=== PATIENT | female | born 1950 | race Caucasian/White ===

== ENCOUNTER 2017-11-19 07:52 | Inpatient (IN) | payer MEDICARE ==
[2017-11-19 07:51] LABS: ABO GROUP A; ANTIBODY SCREEN NEGATIVE (NEGATIVE); RH TYPE POSITIVE
[~2017-11-19 07:52] MED LIST: CEFAZOLIN 2 Gram 2 GM/50 ML BAG IVPB ONE; CELECOXIB 100 MG CAPSULE PO ONE; FAMOTIDINE 20MG TABLET PO ONE; MECLIZINE 25 MG TABLET PO ONE; METOCLOPRAMIDE 10 MG TABLET PO ONE; VANCOMYCIN HCL 1,000 MG in DEXTROSE 5 % IN WATER 250 ML IVPB ONE
[2017-11-19] MEDS ORDERED: HYDROMORPHONE HCL 2 MG/ML VIAL IM PRN (10:56)
[2017-11-19] MEDS ORDERED: MAGNESIUM HYDROXIDE 30 ML UDC PO PRN (10:56)
[2017-11-19] MEDS ORDERED: ACETAMINOPHEN 325 MG TAB PO PRN (10:56)
[2017-11-19] MEDS ORDERED: BISACODYL 10 MG SUPP RC PRN (10:56)
[2017-11-19] MEDS ORDERED: DIPHENHYDRAMINE HCL 25 MG CAPSULE PO PRN (10:56)
[2017-11-19] MEDS ORDERED: AL HYDROX/MAG HYDROX 30ML UD PO PRN (10:56)
[2017-11-19] MEDS ORDERED: NALOXONE 0.4 MG/1 ML VIAL IVP PRN (10:56)
[2017-11-19] MEDS ORDERED: KETOROLAC 30 MG/ML VIAL IVP PRN ×2 (10:56)
[2017-11-19] MEDS ORDERED: ONDANSETRON HCL IV 4 MG/2 ML VIAL IVP PRN (10:56)
[2017-11-19] MEDS ORDERED: ZOLPIDEM TARTRATE 5 MG TABLET PO PRN (10:56)
[2017-11-19] MEDS ORDERED: ACETAMINOPHEN W/ CODEINE 300MG/60MG TABLET PO PRN (10:56)
[2017-11-19] MEDS ORDERED: TRANEXAMIC ACID 1,000 MG/10 ML ML IV ONE ×2 (12:56→12:59)
[2017-11-19] MEDS ORDERED: 0.9 % SODIUM CHLORIDE 10 ML VIAL IVP ONE (12:59)
[2017-11-19] MEDS ORDERED: FENTANYL PF 100MCG/2ML VIAL IV ONE (14:00)
[2017-11-19] MEDS ORDERED: PROPOFOL 10 MG/ML VIAL IV ONE (14:00)
[2017-11-19] MEDS ORDERED: KETOROLAC 30 MG/ML VIAL IVP ONE (14:00)
[2017-11-19] MEDS ORDERED: HYDROMORPHONE HCL 2 MG/ML VIAL IV ONE (14:00)
[2017-11-19] MEDS ORDERED: DIPHENHYDRAMINE HCL IV 50 MG/ML VIAL IVP ONE (14:00)
[2017-11-19] MEDS ORDERED: *PACU ONLY* KETAMINE HCL 10 MG/ML (20ML) VIAL IV ONE (14:00)
[2017-11-19] MEDS ORDERED: MIDAZOLAM HCL 2MG/2ML VIAL IV ONE (14:00)
--- NOTE | 2017-11-19 14:40 | Rehab Evaluation ---
Patient Information - Patient Information Diagnosis: R Knee DJD Ordered Treatment: PT Evaluate and Treat Status: Initial Evaluation Surgery: Yes (R TKA) Date of Surgery: 11/19/17 Past Medical/Surgical Hx: PAST MEDICAL/SURGICAL HISTORY Past Surgical History 2 C SECTIONS; HYSTERECTOMY & ONE OVARY REMOVED(ENDOMETRIOSIS) ; LAP JUAN M; APPY WITH OVARY REMOVAL; 2 HERNIA REPAIR; EXPLORATORY LAP FOR ENDOMETRIOSIS; 1995 ABD SX-"I LEFT HOSPITAL WITH AN OPEN INCISION-PACKED"--INCISION "OPENED UP AFTER DR TOOK OUT LIT"; ABDOMINAL HERNIA SX (INCISIONAL); 2012 EXP LAPAROTOMY WITH REMOVAL OF MESH-MANY ADHESIONS. COLONOSCOPY. REMOVAL OF BLOOD CLOT FROM LEFT LEG -AGE 26 PMH - Respiratory Hx Respiratory Disorders Yes Hx Asthma No Hx Bronchitis Yes: YEARS AGO Hx Chronic Obstructive No Pulmonary Disease (COPD) Hx Dyspnea No Hx Pneumonia Yes: WALKING WHEN YOUNGER Hx Pulmonary Embolism No Hx Sleep Apnea No Hx Tuberculosis No Hx of CPAP No Hx of URI Yes: 2017 PMH - Cardiovascular Hx Cardiovascular Disorders Yes Hx Abnormal EKG No Hx Cardiac Catheterization No Hx Chest Pain No Hx Congestive Heart Failure No Hx Deep Vein Thrombosis Yes: 2X AGE 26 Hx Edema No Hx Heart Attack No Hx Hypertension Yes: ATENOLOL GOOD CONTROL Hx Hypotension No Hx Irregular Heartbeat No Hx Palpitations No Hx Pacemaker/Defibrillator No Hx Vascular Disease No Hx of Mitral Valve Prolapse Yes Exercise Tolerance Poor Hx Transient Ischemic Attacks No (TIA) Comment: DUE TO KNEE PAIN PMH - Neuro Hx Neurological Disorders Yes Hx Brain Tumor No Hx Cerebrovascular Accident No Hx Dementia No Hx Dizziness No Hx Headaches Yes: ALLERGY RELATED Hx Neuropathy No Hx Parkinson's Disease No Hx Seizures No Hx Speech Problem No Hx Syncope No Hx Transient Ischemic Attacks No (TIA) PMH - GI Hx Gastrointestinal Disorders Yes Hx Abdominal Pain No Hx Celiac Disease No Hx Crohn's Disease No Hx Diverticulitis Yes Hx Gastrointestinal Bleed No Hx Gastroesophageal Reflux Yes: OMEPRAZOLE RX Hx Hepatitis/Jaundice No Hx Hiatal Hernia No Hx Irritable Bowel Yes: ?? /PT HAS DIARRHEA Hx Liver Disease No Hx Nausea/Vomiting No Hx Obstructive Bowel No Hx Pancreatitis No Hx Rectal Bleeding No Hx Ulcer No Hx Weight Loss/Weight Gain No PMH - Hx Genitourinary Disorders Yes Hx Bladder Problem Yes: ON [facility]-[facility] FREQUENCY Hx Dialysis No Hx Kidney Stones Yes: 15 YRS AGO Hx Renal Disease No Hx Urinary Tract Infection No Comment: HYSTERECTOMY PMH - Endocrine Hx Endocrine Disorders Yes Hx Diabetes No Hx Thyroid Disease Yes PMH - Musculoskeletal Hx Musculoskeletal Disorders Yes Hx Arthritis Yes: KNEES, WRISTS Hx Back Injury No Hx Fibromyalgia No Hx Gout No Hx Musculoskeletal Disease No Hx Osteoporosis No PMH - Psych Hx Psychiatric Problems Yes Hx Anxiety Yes Hx Behavior Problems No Hx Depression No Hx Emotional Abuse No Hx Sexual Abuse No Hx Suicide Attempt No Major Depressive Episode No Feelings of Hopelessness No PMH - Hematology/Oncology Hx Hematology/Oncology Yes Disorders Hx Anemia No Hx Blood Disorders No Hx Bruising Yes: EASY TO BRUISE Hx Cancer No Hx Chemotherapy No Hx Radiation Therapy No Hx Clotting Problems No Hx Sickle Cell Disease No Hx Unexplained Bleeding No Hx Blood Transfusion Reaction No Social History: Detail (The patient lives in a one story home with her . The patient's home has 4 steps to enter with a railing on the right side while ascending. The bathroom has a walk-in shower with grab bars and a shower seat present. The toilet is a standard height, but will be using a riser once she returns home. The toilet does not have grab bars present. She will be using a 2WW during ambulation post-op.) Precautions: Other (WBAT on R) - Time With Patient Total Time Spent With Patient (Min): 30 Treatment Procedures: Detail (PT Initial Evaluation) Subjective Information - Subjective Information Per Patient (No complaints of nausea or dizziness at initial evalution. Had some complaints of itching - nursing was notified.) Objective Data - Pain Pain Present: No Pain Intensity: 0 Pain Scale Used: Numeric (1 - 10) - Mental Status Patient Orientation: Oriented x3 - ROM Within normal limits (Not formally tested, but was within functional limits. R Knee is limited as expected s/p R TKA) - Strength/Tone Within normal limits (Was within functional limits for activities at initial evaluation. R knee strength was decreased as expected s/p R TKA) - Bed Mobility Independent (Scooting - Independent. Supine to sit - Independent with use of grab bars. Sit to supine - Independently.) - Transfers Independent (Toilet Transfer - Independent. Stand to sit - Independent.) - Balance Balance Sitting: Good (No problems with LOB while sitting at the bedside.) Balance Standing: Good (Decreased WB on R side, but showed no LOB during static standing and gait activities.) - Gait Detail (The patient was able to ambulate using 2WW and WBAT on R from her room to Room 25 (about 40 feet total) with supervision. She had no LOB during gait, but did fatigue quickly.) Therapy Assessment - Therapy Assessment Detail (The patient has decreased ROM and strength in the R knee as expected s/ p R TKA. The patient was independent with transfers and bed mobility. She had some fatigue with gait activities, and stairs were not assessed at initial evaluation. The patient should progress well with Inpatient PT.) Patient Education - Patient Education Teaching Topic: Exercise/Activity (The patient was instructed in her HEP, which included: Quad Sets, glute. sets, Hamstring sets/Heel Slides, ankle pumps, and SLR. She was instructed to complete 10 reps of each exercise 1-2x/day or to tolerance.) Response: Return Demonstration, Verbalize Understanding Teaching Method: Discussion, Demonstration Teaching Recipient: Patient Barriers To Learning: None Problem List - Problem List Physical Therapy Problem List: Detail (1) Decreased ROM and strength as expected s/p R TKA 2) Ability to ascend/descend stars not assessed) Goals - Goals Physical Therapy Goals: 1) The patient will be independent in HEP in order to increase strength/ROM to aid with functional activities in the home. 2) The patient will be able to ascend/descend 4 steps with supervision to enter the home safely Prognosis - Prognosis Good Plan - Plan Physical Therapy Plan: The patient will be seen 1-2x/day M-F for gait training and LE strengthening/ROM exercises.
--- NOTE | 2017-11-19 14:50 | Operative Note ---
DATE OF SURGERY: 11/19/17 PREOPERATIVE DIAGNOSIS: END-STAGE ARTHROSIS OF THE RIGHT KNEE. POSTOPERATIVE DIAGNOSIS: END-STAGE ARTHROSIS OF THE RIGHT KNEE. PROCEDURE: CEMENTED RIGHT TOTAL KNEE ARTHROPLASTY USING URIOSTEGUI-NEPHEW SHERICE II COMPONENTS WITH A SIZE 4 OXINIUM FEMUR, A SIZE 3 STEM TIBIAL BASEPLATE, A 9 mm LIPPED HIGHLY CROSSLINKED TIBIAL INSERT, AND A 35 MM ALL-PLASTIC PATELLA. STAFF SURGEON: ELISA ZARATE M.D. ANESTHESIA: SPINAL. PREPARATION: CHLORAPREP. INDIVIDUAL CONSIDERATIONS: NONE. PROCEDURE: The patient was taken to the Operating Room and placed supine on the operating table. She had a successful induction of a spinal anesthetic. Her right lower extremity was prepped and draped in the usual fashion. Limb was elevated. The tourniquet was inflated to 250 mmHg. Sharp dissection was carried down through the skin and subcutaneous tissues. Small veins were coagulated with a Bovie. A medial arthrotomy was performed. Patella was everted and the knee was flexed. She had exposed bone especially in the patellofemoral and actually lateral compartments. The fat pad was resected, ACL was sacrificed , provisional anterior meniscectomies were performed, and the capsule was released from the medial proximal tibia. The initial femoral agricultural pilot hole was then made freehand. The intramedullary femoral cutting jig was placed. It was cut in 7.0 degrees of valgus and adjusted for rotation for a 10 mm resection. The initial transverse cut was then made. Skin guide was placed for the anterior and posterior agricultural pilot holes. It was found that a size 4 would be appropriate. The anterior and posterior cuts followed by chamfer cuts were made and osteophytes were removed, and a size 4 trial was placed and found to fit well. The tibia was brought forward and the remainder of the meniscal remnants were removed with a Bovie. The extra-articular tibial cutting jig was placed and it was cut in neutral with a 3-degree AP slope. Care was taken to adjust for rotation and flexion using the extra-articular alignment guide and bony landmarks. It was set for a 9 mm resection and keyed off the high medial side and secured with pins. When cutting the tibia, care was taken to preserve the PCL insertion on the tibia. Large medial osteophytes were removed and it was found that a size 3 baseplate would fit appropriately. It was adjusted for rotation and secured with pins. With a 9 mm trial and femoral trial, there was excellent motion and stability. The femoral agricultural pilot holes were impacted and the triflange tibial stamp was impacted, and these trial components were removed. The patient had a relatively thin patella but adjusted for bone less, I was able to preserve maybe 13 to 14 mm of bone and this cut freehand. I was able to fit a 35 patella and the three agricultural pilot holes were drilled. The tourniquet was let down briefly to get bleeders posteriorly and then placed back up again. The knee was then thoroughly irrigated out with pulsatile Betadine and saline to remove any visual or palpable debris. Bony surfaces were then dried. A size 3 stemmed tibial baseplate was cemented into place, followed by impaction of a 9 mm lipped tibial insert, followed by cementing in the size 4 Oxinium femur, followed by cementing in the 32 mm all-plastic patella. Implant surfaces were compressed, excess cement was removed, and after the cement had set, there was excellent motion and stability, ligamentous balance, rotation, alignment, and patellofemoral tracking were normal. No lateral release was required. After irrigation, the tourniquet was let down. Hemostasis was obtained with a Bovie. The capsule and periosteum were infiltrated with 30 mL of 0.50% Marcaine with Epinephrine and then closed the capsule with a running #2 quill, the subcutaneous was closed in layers with running 0 Quill, and the skin was closed with sadi. The patient did receive 1 gram of Tranexamic Acid preoperatively. I mixed 1 gram of Tranexamic Acid with 30 mL of saline and injected it into the knee through a sterile 18-gauge needle and a sterile Bulkee compressive Aquacel- type dressing was applied. The patient tolerated the procedures well. Needle and sponge counts were correct. Estimated blood loss was minimal and she was taken back to the Recovery Room in good condition. There were no complications. cc: Dr. Rajiv Uriostegui JOB NUMBER: [id number] MTDD
[2017-11-19] MEDS: ACETAMINOPHEN W/ CODEINE 300MG/60MG TABLET PO PRN ×2 (14:52→23:30)
[2017-11-19] MEDS: POTASSIUM CHLORIDE/D5-0.9%NACL 20 MEQ/1,000 ML BAG IV SCH ×2 (17:16→21:37)
[2017-11-19] MEDS: CEFAZOLIN 2 Gram 2 GM/50 ML BAG IVPB SCH (17:58)
[2017-11-19] MEDS: TRAMADOL HCL 50 MG TABLET PO PRN (18:03)
[2017-11-19] MEDS: DOCUSATE SODIUM 100 MG CAPSULE PO SCH (21:35)
[2017-11-19] MEDS: PATIENT OWN MED: ATORVASTATIN 10 MG PO SCH (21:37)
[2017-11-19] MEDS: PATIENT OWN MED: ATENOLOL 50 MG PO SCH (21:37)
[2017-11-20] MEDS: CEFAZOLIN 2 Gram 2 GM/50 ML BAG IVPB SCH ×2 (00:44→08:40)
[2017-11-20] MEDS: POTASSIUM CHLORIDE/D5-0.9%NACL 20 MEQ/1,000 ML BAG IV SCH (03:00)
[2017-11-20] MEDS: ACETAMINOPHEN W/ CODEINE 300MG/60MG TABLET PO PRN ×3 (03:59→14:58)
[2017-11-20] MEDS: PATIENT OWN MED: LEVOTHYROXINE 112 MCG PO SCH (07:02)
[2017-11-20 07:24] LABS: HEMATOCRIT 29.4 % (35.0-47.0); HEMOGLOBIN 9.1 gm/dl (11.6-16.0)
[2017-11-20 07:48] LABS: BLOOD UREA NITROGEN 12 mg/dL (8-23); CREATININE 0.7 mg/dL (0.5-0.9); EST GLOMERULAR FILTRATION RATE > 60 mL/min; GLUCOSE,RANDOM 103 mg/dL (74-109)
[2017-11-20] MEDS ORDERED: FERROUS SULFATE 325 MG TAB PO SCH (10:00)
[2017-11-20] MEDS ORDERED: PATIENT OWN MED: VESICARE 10 MG PO SCH (10:00)
[2017-11-20] MEDS ORDERED: VENLAFAXINE 37.5 MG PO SCH (10:00)
[2017-11-20] MEDS ORDERED: RIVAROXABAN 10 MG TABLET PO SCH (10:00)
[2017-11-20] MEDS ORDERED: PATIENT OWN MED: FLUTICASONE NASAL SPRAY INH SCH (10:00)
[2017-11-20] MEDS: DOCUSATE SODIUM 100 MG CAPSULE PO SCH ×2 (10:21→21:13)
[2017-11-20] MEDS: CALCIUM CARB/VITAMIN D 500MG/200IU PO SCH (10:21)
[2017-11-20] MEDS: MULTIVITAMINS/MINERALS TABLET PO SCH (10:21)
[2017-11-20] MEDS: TRAMADOL HCL 50 MG TABLET PO PRN (10:29)
--- NOTE | 2017-11-20 11:34 | Physical Therapy Tx Note ---
Physical Therapy Tx Note - Treatment Note Tolerated: Good (Patient doing very well today. has flu so she is not sure when she will be going home. Patient has cane that she can use on steps. Willing to get up to walk and try stairs and was able to do that.) Physical Therapy Tx Note: Detail (Patient seen in room, just returned from bathroom and willing to walk. Supine to sit independently then ambulated to stairway in meredith with FWW and WBAT about 60 feet, rested while nursing removed IV so patient could perform stairs, sit to stand independently, ambulated down three steps then pivoted around and ambulated up three steps with rail and folded walker without difficulty, CGA. Patient able to ambulate all the way back to room then performed exercises for knee without difficulty and fairly flexible ROM. Replaced cryocuff and compressive stockings, made sure tray table and call light close.) Physical Therapy Problem List: Detail (1) Decreased ROM and strength as expected s/p R TKA 2) Ability to ascend/descend stars not assessed) Physical Therapy Goals: 1) The patient will be independent in HEP in order to increase strength/ROM to aid with functional activities in the home. 2) The patient will be able to ascend/descend 4 steps with supervision to enter the home safely Prognosis: Good (Patient doing extremely well and has passed goals to go home when doctor comes through to release patients, even if has not been seen second time today.) Physical Therapy Plan: The patient will be seen 1-2x/day M-F for gait training and LE strengthening/ROM exercises.
--- NOTE | 2017-11-20 12:42 | Rehab Evaluation ---
Patient Information - Patient Information Diagnosis: R Knee DJD Ordered Treatment: OT Evaluate and Treat Status: Initial Evaluation Surgery: Yes (R TKA) Date of Surgery: 11/19/17 Past Medical/Surgical Hx: PAST MEDICAL/SURGICAL HISTORY Past Surgical History 2 C SECTIONS; HYSTERECTOMY & ONE OVARY REMOVED(ENDOMETRIOSIS) ; LAP JUAN M; APPY WITH OVARY REMOVAL; 2 HERNIA REPAIR; EXPLORATORY LAP FOR ENDOMETRIOSIS; 1995 ABD SX-"I LEFT HOSPITAL WITH AN OPEN INCISION-PACKED"--INCISION "OPENED UP AFTER DR TOOK OUT LIT"; ABDOMINAL HERNIA SX (INCISIONAL); 2012 EXP LAPAROTOMY WITH REMOVAL OF MESH-MANY ADHESIONS. COLONOSCOPY. REMOVAL OF BLOOD CLOT FROM LEFT LEG -AGE 26 PMH - Respiratory Hx Respiratory Disorders Yes Hx Asthma No Hx Bronchitis Yes: YEARS AGO Hx Chronic Obstructive No Pulmonary Disease (COPD) Hx Dyspnea No Hx Pneumonia Yes: WALKING WHEN YOUNGER Hx Pulmonary Embolism No Hx Sleep Apnea No Hx Tuberculosis No Hx of CPAP No Hx of URI Yes: 2017 PMH - Cardiovascular Hx Cardiovascular Disorders Yes Hx Abnormal EKG No Hx Cardiac Catheterization No Hx Chest Pain No Hx Congestive Heart Failure No Hx Deep Vein Thrombosis Yes: 2X AGE 26 Hx Edema No Hx Heart Attack No Hx Hypertension Yes: ATENOLOL GOOD CONTROL Hx Hypotension No Hx Irregular Heartbeat No Hx Palpitations No Hx Pacemaker/Defibrillator No Hx Vascular Disease No Hx of Mitral Valve Prolapse Yes Exercise Tolerance Poor Hx Transient Ischemic Attacks No (TIA) Comment: DUE TO KNEE PAIN PMH - Neuro Hx Neurological Disorders Yes Hx Brain Tumor No Hx Cerebrovascular Accident No Hx Dementia No Hx Dizziness No Hx Headaches Yes: ALLERGY RELATED Hx Neuropathy No Hx Parkinson's Disease No Hx Seizures No Hx Speech Problem No Hx Syncope No Hx Transient Ischemic Attacks No (TIA) PMH - GI Hx Gastrointestinal Disorders Yes Hx Abdominal Pain No Hx Celiac Disease No Hx Crohn's Disease No Hx Diverticulitis Yes Hx Gastrointestinal Bleed No Hx Gastroesophageal Reflux Yes: OMEPRAZOLE RX Hx Hepatitis/Jaundice No Hx Hiatal Hernia No Hx Irritable Bowel Yes: ?? /PT HAS DIARRHEA Hx Liver Disease No Hx Nausea/Vomiting No Hx Obstructive Bowel No Hx Pancreatitis No Hx Rectal Bleeding No Hx Ulcer No Hx Weight Loss/Weight Gain No PMH - Hx Genitourinary Disorders Yes Hx Bladder Problem Yes: ON [facility] FREQUENCY Hx Dialysis No Hx Kidney Stones Yes: 15 YRS AGO Hx Renal Disease No Hx Urinary Tract Infection No Comment: HYSTERECTOMY PMH - Endocrine Hx Endocrine Disorders Yes Hx Diabetes No Hx Thyroid Disease Yes PMH - Musculoskeletal Hx Musculoskeletal Disorders Yes Hx Arthritis Yes: KNEES, WRISTS Hx Back Injury No Hx Fibromyalgia No Hx Gout No Hx Musculoskeletal Disease No Hx Osteoporosis No PMH - Psych Hx Psychiatric Problems Yes Hx Anxiety Yes Hx Behavior Problems No Hx Depression No Hx Emotional Abuse No Hx Sexual Abuse No Hx Suicide Attempt No Major Depressive Episode No Feelings of Hopelessness No PMH - Hematology/Oncology Hx Hematology/Oncology Yes Disorders Hx Anemia No Hx Blood Disorders No Hx Bruising Yes: EASY TO BRUISE Hx Cancer No Hx Chemotherapy No Hx Radiation Therapy No Hx Clotting Problems No Hx Sickle Cell Disease No Hx Unexplained Bleeding No Hx Blood Transfusion Reaction No Social History: Detail (The patient lives in a one story home with her . The patient's home has 4 steps to enter with a railing on the right side while ascending. The bathroom has a walk-in shower with grab bars, hand held shower head, and a shower seat present. Pt. also has a raised toilet seat. The toilet does not have grab bars present. She will be using a 2WW during ambulation post- op. Pt. has a research manager at home.) Precautions: Other (WBAT on R.) - Time With Patient Total Time Spent With Patient (Min): 40 Treatment Procedures: Detail (R knee was bleeding through bandages upon arrival. Nursing was notified, and tended to the pt., stated it was fine to get out of bed to do activities/assessment. See ADL section for tx details. Pt. had concerns about how much she's allowed to be active and how long she should have her leg up in bed; educ. provided to ask nursing or physician d/t bleeding.) Objective Data - Mental Status Patient Orientation: Oriented x3 - Visual Perception Appears within normal limits for therapeutic activities - ROM Within normal limits (BUE) - Strength/Tone Within normal limits (BUE MMT 4+/5) - Coordination Appears within normal limits for therapeutic activities - Bed Mobility Independent - Transfers Independent (sit<>stand) - Balance Balance Sitting: Good Balance Standing: Fair - ADL's/IADL's Detail (Pt. demo. ability to don/doff dominick. socks. Did not dress at this time d/ t bleeding issue. Educ. provided in adaptive dressing techniques and use of research manager. Pt. toileted Ind. with SBA to stabilize walker when rising from standard toilet.) Therapy Assessment - Therapy Assessment Detail (In-pt. OT services not recommended at this time. Pt. has positive support system at home, and is aware of adaptive techniques and AE.) Patient Education - Patient Education Teaching Topic: Equipment Use Response: Return Demonstration, Verbalize Understanding Teaching Method: Discussion, Demonstration Teaching Recipient: Patient Problem List - Problem List Physical Therapy Problem List: Detail (1) Decreased ROM and strength as expected s/p R TKA 2) Ability to ascend/descend stars not assessed) Goals - Goals Physical Therapy Goals: 1) The patient will be independent in HEP in order to increase strength/ROM to aid with functional activities in the home. 2) The patient will be able to ascend/descend 4 steps with supervision to enter the home safely Prognosis - Prognosis Good Plan - Plan Physical Therapy Plan: The patient will be seen 1-2x/day M-F for gait training and LE strengthening/ROM exercises. Occupational Therapy Plan: D/C from in-pt. OT services. Educ. was provided to call rehab dept. if Q's arise when she returns home.
--- NOTE | 2017-11-20 15:29 | Physical Therapy Tx Note ---
Physical Therapy Tx Note - Treatment Note Tolerated: Good (Patient seen in pm and doing better but had some issues with bleeding at incision so nurse had to put pressure bandage on same and willing to try to walk again. Walking more for increased endurance.) Total Time Spent With Patient: 30 Physical Therapy Tx Note: Detail (Patient seen in room and able to move independently from supine to sit then sit to stand, WBAT. Able to ambulate 120 feet down meredith with FWW and WBAT and back to room with CGA. Reviewed exercises for knee: quad, glut and hamstring sets, heel slides, SLR and ankle pumps and patient able to do all well.) Physical Therapy Problem List: Detail (1) Decreased ROM and strength as expected s/p R TKA 2) Ability to ascend/descend stars not assessed) Physical Therapy Goals: 1) The patient will be independent in HEP in order to increase strength/ROM to aid with functional activities in the home. 2) The patient will be able to ascend/descend 4 steps with supervision to enter the home safely Prognosis: Good (Patient has met all goals for discontinuing PT now and should do well at home. Will be going home tomorrow.) Physical Therapy Plan: The patient will be seen 1-2x/day M-F for gait training and LE strengthening/ROM exercises.
[2017-11-20] MEDS: PATIENT OWN MED: ATENOLOL 50 MG PO SCH (21:13)
[2017-11-20] MEDS: PATIENT OWN MED: ATORVASTATIN 10 MG PO SCH (21:13)
[2017-11-20] MEDS ORDERED: ASPIRIN 325 MG TAB ENTERIC-COATED PO SCH (22:00)
[2017-11-21] MEDS: ACETAMINOPHEN W/ CODEINE 300MG/60MG TABLET PO PRN ×3 (01:29→09:48)
[2017-11-21] MEDS: PATIENT OWN MED: LEVOTHYROXINE 112 MCG PO SCH (06:06)
[2017-11-21 06:56] LABS: HEMATOCRIT 29.3 % (35.0-47.0); HEMOGLOBIN 9.2 gm/dl (11.6-16.0)
[2017-11-21 07:32] LABS: BLOOD UREA NITROGEN 10 mg/dL (8-23); CREATININE 0.5 mg/dL (0.5-0.9); EST GLOMERULAR FILTRATION RATE > 60 mL/min; GLUCOSE,RANDOM 109 mg/dL (74-109)
[2017-11-21] MEDS: CALCIUM CARB/VITAMIN D 500MG/200IU PO SCH (09:51)
[2017-11-21] MEDS: MULTIVITAMINS/MINERALS TABLET PO SCH (09:51)
[2017-11-21] MEDS: DOCUSATE SODIUM 100 MG CAPSULE PO SCH (09:51)
== END 2017-11-21 10:43 | disposition home health service (06) | DRG 470 ==
LOC: MEDSURG 07:52
PROVIDERS: ADMIT Orthopaedic Surgery; ATTEND Orthopaedic Surgery
PROC: 0SRC069 Replacement of Right Knee Joint with Oxidized Zirconium on Polyethylene Synthetic Substitute, Cemented, Open Approach (ICD-10-PCS; principal; 2017-11-19 09:00)
DX: M17.11 Unilateral primary osteoarthritis, right knee (principal); I10 Essential (primary) hypertension; E03.9 Hypothyroidism, unspecified; E78.00 Pure hypercholesterolemia, unspecified; F41.9 Anxiety disorder, unspecified
CPT/HCPCS: 80048; 85014; 85018; 86850; 86900; 86901; 94760; 97110; 97116; 97165; J1200; J1885; J2405; J3480; J7060

== ENCOUNTER 2018-12-09 11:04 | Day surgery (SDC) | payer MEDICARE ==
[~2018-12-09 11:04] MED LIST changes: -CELECOXIB 100 MG CAPSULE PO ONE
[2018-12-09] MEDS ORDERED: MIDAZOLAM HCL 2MG/2ML VIAL IV ONE (11:05)
[2018-12-09] MEDS ORDERED: DESFLURANE 240 ML BTL INH ONE (11:05)
[2018-12-09] MEDS ORDERED: PROPOFOL 10 MG/ML VIAL IV ONE (11:05)
[2018-12-09] MEDS ORDERED: MEPERIDINE 50 MG/1 ML VIAL IVP ONE (11:05)
[2018-12-09] MEDS ORDERED: TRANEXAMIC ACID 1,000 MG/10 ML ML IV ONE ×2 (11:05)
[2018-12-09] MEDS ORDERED: FENTANYL PF 100MCG/2ML VIAL IV ONE (11:05)
[2018-12-09] MEDS ORDERED: 0.9 % SODIUM CHLORIDE 10 ML VIAL IVP ONE (11:05)
[2018-12-09] MEDS ORDERED: BUPIVACAINE 0.5% W/EPI MPF 30 ML VIAL IVP ONE (11:05)
[2018-12-09 12:00] LABS: ABO GROUP A; ANTIBODY SCREEN NEGATIVE (NEGATIVE); RH TYPE POSITIVE
[2018-12-09] MEDS ORDERED: BISACODYL 10 MG SUPP RC PRN (14:36)
[2018-12-09] MEDS ORDERED: ACETAMINOPHEN 325 MG TAB PO PRN (14:36)
[2018-12-09] MEDS ORDERED: DIPHENHYDRAMINE HCL 25 MG CAPSULE PO PRN (14:36)
[2018-12-09] MEDS ORDERED: KETOROLAC 30 MG/ML VIAL IVP PRN ×2 (14:36)
[2018-12-09] MEDS ORDERED: ZOLPIDEM TARTRATE 5 MG TABLET PO PRN (14:36)
[2018-12-09] MEDS ORDERED: MAGNESIUM HYDROXIDE 30 ML UDC PO PRN (14:36)
[2018-12-09] MEDS ORDERED: NALOXONE 0.4 MG/1 ML VIAL IVP PRN (14:36)
[2018-12-09] MEDS ORDERED: AL HYDROX/MAG HYDROX 30ML UD PO PRN (14:36)
[2018-12-09] MEDS ORDERED: MEPERIDINE 50 MG/1 ML VIAL IV PRN (14:41)
[2018-12-09] MEDS ORDERED: RINGERS SOLUTION,LACTATED 150 ML IV ONE (16:38)
[2018-12-09] MEDS: POTASSIUM CHLORIDE/D5-0.9%NACL 20 MEQ/1,000 ML BAG IV SCH (17:26)
[2018-12-09] MEDS: ONDANSETRON HCL IV 4 MG/2 ML VIAL IVP PRN (21:43)
[2018-12-09] MEDS: MEPERIDINE 50 MG/1 ML VIAL PO PRN (21:50)
[2018-12-09] MEDS ORDERED: ATENOLOL 50 MG TABLET PO SCH (22:00)
[2018-12-09] MEDS ORDERED: ATORVASTATIN 20 MG TABLET PO SCH (22:00)
[2018-12-09] MEDS: CEFAZOLIN 2 Gram 2 GM/50 ML BAG IVPB SCH (22:29)
[2018-12-09] MEDS: DOCUSATE SODIUM 100 MG CAPSULE PO SCH ×2 (22:32→22:34)
[2018-12-09] MEDS: PANTOPRAZOLE SODIUM 40 MG TABLET PO SCH (22:34)
[2018-12-10] MEDS: POTASSIUM CHLORIDE/D5-0.9%NACL 20 MEQ/1,000 ML BAG IV SCH ×2 (00:47→10:53)
[2018-12-10] MEDS: ONDANSETRON HCL IV 4 MG/2 ML VIAL IVP PRN ×2 (05:11→11:00)
[2018-12-10] MEDS: MEPERIDINE 50 MG/1 ML VIAL PO PRN (05:40)
[2018-12-10] MEDS: CEFAZOLIN 2 Gram 2 GM/50 ML BAG IVPB SCH (05:42)
[2018-12-10] MEDS: PANTOPRAZOLE SODIUM 40 MG TABLET PO SCH (06:48)
[2018-12-10 06:50] LABS: HEMATOCRIT 30.2 % (35.0-47.0); HEMOGLOBIN 9.3 gm/dl (11.6-16.0)
[2018-12-10 06:59] LABS: BLOOD UREA NITROGEN 8 mg/dL (8-23); CREATININE 0.6 mg/dL (0.5-0.9); EST GLOMERULAR FILTRATION RATE > 60 mL/min; GLUCOSE,RANDOM 140 mg/dL (74-109)
[2018-12-10] MEDS ORDERED: LEVOTHYROXINE SODIUM 150 MCG TABLET PO SCH (07:00)
--- NOTE | 2018-12-10 09:00 | Operative Note ---
DATE OF SURGERY: 12/09/2018 PREOPERATIVE DIAGNOSIS: End-stage arthrosis of the left knee. POSTOPERATIVE DIAGNOSIS: End-stage arthrosis of the left knee. OPERATION: Cemented left total knee arthroplasty using Uriostegui and Nephew Rubina II components with a size 4 Oxinium femur, a size 3 stem tibia baseplate, a 9 mm lipped highly crosslinked tibial insert, and a 32 mm all plastic patella. Staff Surgeon: Niranjan Rousseau MD Anesthesia: General. PREPARATION: Chloraprep. INDIVIDUAL CONSIDERATIONS: None. PROCEDURE: The patient was taken to the operating room, placed supine on the operating room table. She had a successful induction of a general anesthetic. The left lower extremity was prepped and draped in the usual fashion. The patient had a midline approach to the knee. The limb was elevated and tourniquet was inflated to 250 mmHg. Sharp dissection carried down through skin and subcutaneous tissue. Small veins were coagulated with a Bovie. A medial arthrotomy was performed. The patella was everted and the knee was flexed. She had basically exposed bone and bone loss in the patellofemoral compartment and lesser changes medially. Fat pad was resected, ACL was sacrificed, provisional anterior meniscectomies were performed. The capsule was released from the medial proximal tibia. The initial femoral commercial pilot hole was then made freehand. The intramedullary femoral cutting jig was placed. It was cut in 7.0 degrees of valgus and adjusted for rotation and secured with pins for a 10 mm resection. The initial transverse cut was then made. The skin guide was placed in the anterior and posterior commercial pilot holes. It was found that a size 4 would be appropriate. The anterior and posterior cuts followed by chamfer cuts were made. Osteophytes removed, and a size 4 trial was placed and found to fit well. The tibia was brought forward, and the remainder of the meniscal remnants removed with a Bovie. The extraarticular tibial cutting jig was placed. It was cut in neutral with a 3-degree AP slope. Care was taken to adjust the rotation and flexion using the extraarticular alignment guide and bony landmarks. It was set for a 9 mm resection keyed off the high lateral side and secured with pins. When cutting the tibia, care was taken to preserve the PCL insertion on the tibia. After removing osteophytes, I could fit a size 3 baseplate. It was adjusted for rotation and secured with pins. With a 9 mm lipped trial and femoral trial, there was excellent motion and stability, ligamentous balance, rotation alignment, patellofemoral tracking were normal. Femoral commercial pilot holes were impacted and the tri-flange tibial stamp was impacted, and these trial components were removed. The patient had a marginal patella but I was able to just barely cut off enough remaining patella to leave about 13-14 mm remaining compensating for bone loss. I was able to fit a 32 mm diameter patella and the 3 3 commercial pilot holes were drilled. The tourniquet was let down briefly to get bleeders posteriorly and then placed back up again. The knee was then thoroughly irrigated out with pulsatile Betadine and saline to remove any visual or palpable debris. Bony surfaces were then dried. A size 3 stem tibia baseplate was cemented into place followed by impaction of the 9 mm lipped tibial insert followed by cementing in the size 4 Oxinium femur followed by cementing in the 32 mm all plastic patella. The implant surfaces were compressed, excess cement was removed, and after the cement had set, there was excellent motion and stability, ligamentous balance, rotation alignment, and patellofemoral tracking were normal. No lateral release was required. Again thorough irrigation. Tourniquet was let down to get hemostasis. I then infiltrated the skin, subcu, and periosteum with 30 mL of 0.5% Marcaine with epinephrine. The capsule was then closed with a running #2 quill, subcu was closed in layers with running 0 quill, skin was closed with sadi. Saline 30 mL mixed with 1 g of tranexamic acid was injected into the knee, and a sterile bulky compressive ANDRE-type dressing was applied. The patient tolerated the procedure well. Needle and sponge counts were correct. Estimated blood loss was minimal, and she was taken back to recovery in good condition. There were no complications. LLOYD
[2018-12-10] MEDS ORDERED: ASPIRIN 325 MG TAB ENTERIC-COATED PO SCH (10:00)
[2018-12-10] MEDS ORDERED: MULTIVITAMINS/MINERALS TABLET PO SCH (10:00)
[2018-12-10] MEDS ORDERED: CALCIUM CARB/VITAMIN D 500MG/200IU PO SCH (10:00)
[2018-12-10] MEDS ORDERED: RIVAROXABAN 10 MG TABLET PO SCH (10:00)
[2018-12-10] MEDS ORDERED: FERROUS SULFATE 325 MG TAB PO SCH (10:00)
[2018-12-10] MEDS ORDERED: CHOLECALCIFEROL 1,000 UNIT TABLET PO SCH (10:00)
[2018-12-10] MEDS: DOCUSATE SODIUM 100 MG CAPSULE PO SCH (11:00)
--- NOTE | 2018-12-10 11:10 | Rehab Evaluation ---
Patient Information - Patient Information Diagnosis: L knee DJD Ordered Treatment: PT Evaluate and Treat Status: Initial Evaluation Surgery: Yes (L TKA) Date of Surgery: 12/09/18 Past Medical/Surgical Hx: PAST MEDICAL/SURGICAL HISTORY Past Surgical History RTKA 3-18 2 C SECTIONS; HYSTERECTOMY & ONE OVARY REMOVED(ENDOMETRIOSIS) ; LAP JUAN M; APPY WITH OVARY REMOVAL; 2 HERNIA REPAIR; EXPLORATORY LAP FOR ENDOMETRIOSIS; 1995 ABD SX-"I LEFT HOSPITAL WITH AN OPEN INCISION-PACKED"--INCISION "OPENED UP AFTER DR TOOK OUT LIT"; ABDOMINAL HERNIA SX (INCISIONAL); 2012 EXP LAPAROTOMY WITH REMOVAL OF MESH-MANY ADHESIONS. COLONOSCOPY. REMOVAL OF BLOOD CLOT FROM LEFT LEG -AGE 26 PMH - Respiratory Hx Respiratory Disorders Yes Hx Asthma No Hx Bronchitis Yes: YEARS AGO Hx Chronic Obstructive No Pulmonary Disease (COPD) Hx Dyspnea No Hx Pneumonia Yes: WALKING WHEN YOUNGER Hx Pulmonary Embolism No Hx Sleep Apnea No Hx Tuberculosis No Hx of CPAP No PMH - Cardiovascular Hx Cardiovascular Disorders Yes Hx Abnormal EKG No Hx Cardiac Catheterization No Hx Chest Pain No Hx Congestive Heart Failure No Hx Deep Vein Thrombosis Yes: 2X AGE 26 Hx Edema No Hx Heart Attack No Hx Hypertension Yes: ATENOLOL GOOD CONTROL Hx Hypotension No Hx Irregular Heartbeat No Hx Palpitations No Hx Pacemaker/Defibrillator No Hx Vascular Disease No Hx of Mitral Valve Prolapse Yes Exercise Tolerance Fair Hx Transient Ischemic Attacks No (TIA) Comment: DUE TO KNEE PAIN PMH - Neuro Hx Neurological Disorders Yes Hx Brain Tumor No Hx Cerebrovascular Accident No Hx Dementia No Hx Dizziness No Hx Headaches Yes: ALLERGY RELATED Hx Neuropathy No Hx Parkinson's Disease No Hx Seizures No Hx Speech Problem No Hx Syncope No Hx Transient Ischemic Attacks No (TIA) PMH - GI Hx Gastrointestinal Disorders Yes Hx Abdominal Pain No Hx Celiac Disease No Hx Crohn's Disease No Hx Diverticulitis Yes Hx Gastrointestinal Bleed No Hx Gastroesophageal Reflux Yes: OMEPRAZOLE RX Hx Hepatitis/Jaundice No Hx Hiatal Hernia No Hx Irritable Bowel Yes: ?? /PT HAS DIARRHEA Hx Liver Disease No Hx Nausea/Vomiting No Hx Obstructive Bowel No Hx Pancreatitis No Hx Rectal Bleeding No Hx Ulcer No Hx Weight Loss/Weight Gain No PMH - Hx Genitourinary Disorders Yes Hx Bladder Problem Yes: ON [facility]IC[facility]PS FREQUENCY Hx Dialysis No Hx Kidney Stones Yes: 15 YRS AGO Hx Renal Disease No Hx Urinary Tract Infection No Comment: HYSTERECTOMY PMH - Endocrine Hx Endocrine Disorders Yes Hx Diabetes No Hx Thyroid Disease Yes PMH - Musculoskeletal Hx Musculoskeletal Disorders Yes Hx Arthritis Yes: KNEES, WRISTS Hx Back Injury No Hx Fibromyalgia No Hx Gout No Hx Musculoskeletal Disease No Hx Osteoporosis No PMH - Psych Hx Psychiatric Problems Yes Hx Anxiety Yes Hx Behavior Problems No Hx Depression No Hx Emotional Abuse No Hx Sexual Abuse No Hx Suicide Attempt No PMH - Hematology/Oncology Hx Hematology/Oncology Yes Disorders Hx Anemia No Hx Blood Disorders No Hx Bruising Yes: EASY TO BRUISE Hx Cancer No Hx Chemotherapy No Hx Radiation Therapy No Hx Clotting Problems No Hx Sickle Cell Disease No Hx Unexplained Bleeding No Hx Blood Transfusion Reaction No Premorbid Status: Detail (The patient was independent with all mobility prior to surgery.) Social History: Detail (The patient lives with spouse in a 2 story house with 3 steps, a landing and one step at the enterance and one railing. The patient will be staying on first floor. The bathroom is equipped with a walk in shower, shower bench, hand held shower, an elevated toilet with grab bars. The patient has a front wheeled walker and cane.) Precautions: [place], Fall, Other (WBAT on the L LE.) - Time With Patient Total Time Spent With Patient (Min): 30 Treatment Procedures: Detail (Initial Evaluation, gait training) Subjective Information - Subjective Information Per Patient (The patient had no complaints of pain.) Objective Data - Mental Status Patient Orientation: Oriented x3 - Visual Perception Appears within normal limits for therapeutic activities - ROM Not within normal limits (The patient's L knee is limited as to be expected s/ p surgery. All other AROM is WNL.) - Strength/Tone Not within normal limits (The patient's L LE strength was not tested s/p surgery , however strength is functional ie: the patient is able to lift L LE in and out of bed. The patient's R LE is WNL.) - Bed Mobility Independent (The patient is independent with supine to and from sit transfer.) - Transfers Independent (The patient is independent with sit to and from stand transfer.) - Balance Balance Sitting: Good Balance Standing: Good - Sensation Intact - Gait Detail (The patient ambulated with a front wheeled walker a distance of 300 feet plus WBAT on the L LE independently. The patient ambulated on steps using correct technique with supervision for safety only.) Therapy Assessment - Therapy Assessment Detail (The patient was independent with bed mobility, transfers and ambulation on levels and stairs. The patient has met all inpatient goals and is to continue with Home PT.) Patient Education - Patient Education Teaching Topic: Exercise/Activity (The patient was independent with the following TKA HEP: heel slides supine, SLR, quad sets, hamstring sets, ankle pumps, gluteal sets.) Response: Return Demonstration Teaching Method: Discussion, Handout Teaching Recipient: Patient Barriers To Learning: None Problem List - Problem List Physical Therapy Problem List: Detail (Decreased L knee AROM and decreased L LE strength.) Goals - Goals Physical Therapy Goals: All inpatient PT goals have been met. The patient is to continue with HEP. Prognosis - Prognosis Good Plan - Plan Physical Therapy Plan: Inpatient PT goals have been met. Patient is to continue with Home PT.
--- NOTE | 2018-12-10 13:34 | Rehab Evaluation ---
Patient Information - Patient Information Diagnosis: L knee DJD Ordered Treatment: OT Evaluate and Treat Status: Initial Evaluation Surgery: Yes (L TKA) Date of Surgery: 12/09/18 Past Medical/Surgical Hx: PAST MEDICAL/SURGICAL HISTORY Past Surgical History RTKA 3-18 2 C SECTIONS; HYSTERECTOMY & ONE OVARY REMOVED(ENDOMETRIOSIS) ; LAP JUAN M; APPY WITH OVARY REMOVAL; 2 HERNIA REPAIR; EXPLORATORY LAP FOR ENDOMETRIOSIS; 1995 ABD SX-"I LEFT HOSPITAL WITH AN OPEN INCISION-PACKED"--INCISION "OPENED UP AFTER DR TOOK OUT LIT"; ABDOMINAL HERNIA SX (INCISIONAL); 2012 EXP LAPAROTOMY WITH REMOVAL OF MESH-MANY ADHESIONS. COLONOSCOPY. REMOVAL OF BLOOD CLOT FROM LEFT LEG -AGE 26 PMH - Respiratory Hx Respiratory Disorders Yes Hx Asthma No Hx Bronchitis Yes: YEARS AGO Hx Chronic Obstructive No Pulmonary Disease (COPD) Hx Dyspnea No Hx Pneumonia Yes: WALKING WHEN YOUNGER Hx Pulmonary Embolism No Hx Sleep Apnea No Hx Tuberculosis No Hx of CPAP No PMH - Cardiovascular Hx Cardiovascular Disorders Yes Hx Abnormal EKG No Hx Cardiac Catheterization No Hx Chest Pain No Hx Congestive Heart Failure No Hx Deep Vein Thrombosis Yes: 2X AGE 26 Hx Edema No Hx Heart Attack No Hx Hypertension Yes: ATENOLOL GOOD CONTROL Hx Hypotension No Hx Irregular Heartbeat No Hx Palpitations No Hx Pacemaker/Defibrillator No Hx Vascular Disease No Hx of Mitral Valve Prolapse Yes Exercise Tolerance Fair Hx Transient Ischemic Attacks No (TIA) Comment: DUE TO KNEE PAIN PMH - Neuro Hx Neurological Disorders Yes Hx Brain Tumor No Hx Cerebrovascular Accident No Hx Dementia No Hx Dizziness No Hx Headaches Yes: ALLERGY RELATED Hx Neuropathy No Hx Parkinson's Disease No Hx Seizures No Hx Speech Problem No Hx Syncope No Hx Transient Ischemic Attacks No (TIA) PMH - GI Hx Gastrointestinal Disorders Yes Hx Abdominal Pain No Hx Celiac Disease No Hx Crohn's Disease No Hx Diverticulitis Yes Hx Gastrointestinal Bleed No Hx Gastroesophageal Reflux Yes: OMEPRAZOLE RX Hx Hepatitis/Jaundice No Hx Hiatal Hernia No Hx Irritable Bowel Yes: ?? /PT HAS DIARRHEA Hx Liver Disease No Hx Nausea/Vomiting No Hx Obstructive Bowel No Hx Pancreatitis No Hx Rectal Bleeding No Hx Ulcer No Hx Weight Loss/Weight Gain No PMH - Hx Genitourinary Disorders Yes Hx Bladder Problem Yes: ON [facility]PS FREQUENCY Hx Dialysis No Hx Kidney Stones Yes: 15 YRS AGO Hx Renal Disease No Hx Urinary Tract Infection No Comment: HYSTERECTOMY PMH - Endocrine Hx Endocrine Disorders Yes Hx Diabetes No Hx Thyroid Disease Yes PMH - Musculoskeletal Hx Musculoskeletal Disorders Yes Hx Arthritis Yes: KNEES, WRISTS Hx Back Injury No Hx Fibromyalgia No Hx Gout No Hx Musculoskeletal Disease No Hx Osteoporosis No PMH - Psych Hx Psychiatric Problems Yes Hx Anxiety Yes Hx Behavior Problems No Hx Depression No Hx Emotional Abuse No Hx Sexual Abuse No Hx Suicide Attempt No PMH - Hematology/Oncology Hx Hematology/Oncology Yes Disorders Hx Anemia No Hx Blood Disorders No Hx Bruising Yes: EASY TO BRUISE Hx Cancer No Hx Chemotherapy No Hx Radiation Therapy No Hx Clotting Problems No Hx Sickle Cell Disease No Hx Unexplained Bleeding No Hx Blood Transfusion Reaction No Premorbid Status: Detail (The patient was independent with all mobility, meal prep and home mgmt tasks prior to surgery. She and spouse share laundry.) Social History: Detail (The patient lives with spouse in a 2 story house with 3 steps, a landing and one step at the entrance and one railing. The patient will be staying on first floor. The bathroom is equipped with a walk in shower, shower bench, hand held shower, an elevated toilet with grab bars. The patient has a front wheeled walker and cane.) Precautions: [place], Fall, Other (WBAT on the L LE.) - Time With Patient Total Time Spent With Patient (Min): 40 Treatment Procedures: Detail (OT eval low complexity) Subjective Information - Subjective Information Per Patient, Other (Per spouse) Objective Data - Pain Pain Present: Yes (3-12/24) - Mental Status Patient Orientation: Oriented x3 - Visual Perception Appears within normal limits for therapeutic activities - ROM Within normal limits (Dwayne UE AROM WNL) - Strength/Tone Within normal limits (Dwayne UE strength WNL) - Coordination Appears within normal limits for therapeutic activities - Bed Mobility Independent (Ind with supine to sit) - Transfers Independent (Ind with sit to stand from EOB) - Balance Balance Sitting: Good Balance Standing: Good - Sensation Intact - ADL's/IADL's Detail (Pt educated and able to demonstrate learning of modified LE dressing techniques including doffing slipper socks, donning pants, socks and shoes. Reviewed kitchen and shower safety and modifications, pt and spouse verbalized learning.) Therapy Assessment - Therapy Assessment Detail (Pt is safe and Ind with modified LE dressing techniques.) Problem List - Problem List Occupational Therapy Problem List: Detail (No current IP OT problems identified. ) Goals - Goals Occupational Therapy Goals: No current IP OT goals identified. Prognosis - Prognosis Good Plan - Plan Occupational Therapy Plan: No further IP OT recommended. Thank you for this referral.
== END 2018-12-10 11:45 | disposition home health service (06) ==
LOC: SUR 11:04 → MEDSURG 17:15 → SUR 12-10 11:45
PROVIDERS: ATTEND Orthopaedic Surgery
DX: M17.12 Unilateral primary osteoarthritis, left knee (principal); I10 Essential (primary) hypertension; E78.00 Pure hypercholesterolemia, unspecified; E03.9 Hypothyroidism, unspecified; R35.0 Frequency of micturition; Z86.718 Personal history of other venous thrombosis and embolism
CPT/HCPCS: 76942; 80048; 85014; 85018; 86850; 86900; 86901; C1776; J1885; J2405; J3480; J7060; J7120